=== PATIENT | male | born 1950 | race American Indian/Alaskan Native ===

== ENCOUNTER 2024-12-03 07:41 | Day surgery (SDC) | payer MEDICARE, OTHER ==
[2024-12-03] MEDS ORDERED: Lidocaine 2% 100 MG/5 ML Syringe IVPUSH ONE (07:42)
[2024-12-03] MEDS ORDERED: Propofol 200 MG/20 ML SDV IV ONE (07:42)
[2024-12-03] MEDS ORDERED: Sodium Chloride 0.9% 10 ML Syringe FLUSH PRN (07:45)
[2024-12-03] MEDS: Lactated Ringers 1,000 ML IV SCH (08:55)
[2024-12-03] MEDS: Simethicone Drops 40 MG/0.6 ML 30 ML Bottle ONE (09:25)
== END 2024-12-03 11:04 | disposition home or self-care (01) ==
LOC: FB.SDS 07:41
PROVIDERS: ATTEND Surgery
DX: Z12.11 Encounter for screening for malignant neoplasm of colon (principal); D12.6 Benign neoplasm of colon, unspecified; K57.30 Diverticulosis of large intestine without perforation or abscess without bleeding; I10 Essential (primary) hypertension; E11.9 Type 2 diabetes mellitus without complications; K40.30 Unilateral inguinal hernia, with obstruction, without gangrene, not specified as recurrent; Z79.899 Other long term (current) drug therapy
CPT/HCPCS: 00811; 45381; 45385; 88305; 99100; A9270; J2704; J7120